=== PATIENT | male | born 1985 | race Two or more races ===

== ENCOUNTER 2021-12-01 04:11 | Emergency (ER) | payer OTHER ==
[~2021-12-01] VITALS: Ht 182.9 cm; Wt 117.9 kg
[2021-12-01 04:11] VITALS: BP 118/77
== END 2021-12-01 09:39 | disposition left against medical advice (07) ==
LOC: ER 04:11
DX: H57.12 Ocular pain, left eye (principal); Z53.21 Procedure and treatment not carried out due to patient leaving prior to being seen by health care provider